=== PATIENT | male | born 1970 | race Caucasian/White ===

== ENCOUNTER 2022-07-04 06:24 | Day surgery (SDC) | payer BC, SELFPAY ==
--- NOTE | 2022-07-03 10:58 | P.CONAN_ITS ---
Documented by User: Jodi Rowley NP 07/03/22 10:58 HPI - Anesthesia Eval Consult details Narrative: 52yo M for Upper Endoscopy and Colonoscopy [facility] Past Medical History Medical History Anxiety Atypical chest pain GERD (gastroesophageal reflux disease) HTN (hypertension) Seasonal allergies Surgical History Surgical History History of esophagogastroduodenoscopy (EGD) Social History Social History Patient Tobacco Use Status: Never used Tobacco Use of substances other than those prescribed or required for medical reasons: No Have you been hit, kicked, punched, or otherwise hurt by someone within the past year? If so, by whom?: No Are you DNR?: No Advance Directives: No Advance Directives Information Provided: Yes Recently lost weight without trying: No Nutrition Risks: No Nutritional Risk Poor oral hygiene: No Meds Allergies Allergy/AdvReac Type Severity Reaction Status Date / Time penicillin G Allergy Unknown Unknown Verified 06/27/22 16:13 sulfacetamide Allergy Unknown Unknown Verified 06/27/22 16:13 Home Medications Medication Instructions Recorded Confirmed Last Taken Type cetirizine 10 mg tablet (Zyrtec) 10 mg PO DAILY 06/27/22 06/27/22 Unknown History citalopram 20 mg tablet (Celexa) 30 mg PO DAILY 06/27/22 06/27/22 Unknown History lisinopril 20 mg tablet 20 mg PO DAILY 06/27/22 06/27/22 Unknown History pantoprazole 40 mg tablet,delayed 40 mg PO DAILY 06/27/22 06/27/22 Unknown History release Exam Exam Date and Time: July 03, 2022 105 Assessment and Plan Assessment Anesthesia Assessment: Chart Reviewed Documented by User: Antonio Lloyd MD 07/04/22 07:22 [facility] Past Medical History Medical History Anxiety Atypical chest pain GERD (gastroesophageal reflux disease) HTN (hypertension) Seasonal allergies Family History Family history of problems with anesthesia: No Surgical History Surgical History History of esophagogastroduodenoscopy (EGD) History of Problems with Anesthesia: No Social History Social History Patient Tobacco Use Status: Never used Tobacco Use of substances other than those prescribed or required for medical reasons: No Have you been hit, kicked, punched, or otherwise hurt by someone within the past year? If so, by whom?: No Are you DNR?: No Advance Directives: No Advance Directives Information Provided: Yes Recently lost weight without trying: No Nutrition Risks: No Nutritional Risk Poor oral hygiene: No Meds Allergies Allergy/AdvReac Type Severity Reaction Status Date / Time penicillin G Allergy Unknown Unknown Verified 06/27/22 16:13 sulfacetamide Allergy Unknown Unknown Verified 06/27/22 16:13 Home Medications Medication Instructions Recorded Confirmed Last Taken Type cetirizine 10 mg tablet (Zyrtec) 10 mg PO DAILY 06/27/22 06/27/22 Unknown History citalopram 20 mg tablet (Celexa) 30 mg PO DAILY 06/27/22 06/27/22 Unknown History lisinopril 20 mg tablet 20 mg PO DAILY 06/27/22 06/27/22 Unknown History pantoprazole 40 mg tablet,delayed 40 mg PO DAILY 06/27/22 06/27/22 Unknown History release Exam Airway Mallampati Class: II TM Dist: >3cm Neck ROM: Full Loose/Missing/Broken Teeth: No (Rrr) Heart: rrr Lungs: clear Assessment and Plan Final Anesthetic Review Family History of Problems with Anesthesia: No History of Problems with Anesthesia: No ASA Class: II Final Preanesthetic Review: No Changes in Pt Med Stat, Meds/Allgs Chart Reviewed, Consent Obtained/Reviewed and Anes Risks/Benef Reviewed Patient Risk: Low Procedure Risk: Low Anesthetic Plan Anesthetic Plan: MAC: Disposition: Standard PACU
[2022-07-04 07:03] VITALS: BP 132/82; PULSE 86; RESP 18; TEMP 36.6; O2SAT 95; BMI 28.4
[2022-07-04 08:35] VITALS: BP 113/68; PULSE 78; RESP 16; TEMP 36.1; O2SAT 95
--- NOTE | 2022-07-04 08:40 | P.BOP_ITS ---
Brief Operative Note Date of Service: 06/27/22 Pre-op diagnosis: Abdominal pain, GERD, Screening Post-op diagnosis: other (Hiatal hernia, Gastric polyps, Colon polyps) Procedure: EGD with bx, Colonoscopy to the cecum and TI with bx/removal of polyp, and hot snare polypectomy at 40 cm Surgeon: Byron Casper Anesthesia: MAC Was an Pharmacy Student used for this Procedure?: No Estimated blood loss (mL): 2.0 Pathology: other (A. Gastric antrum B. Gastric polyps C. Transverse colon polyp D. Polyp at 40cm) Condition: stable Disposition: PACU
[2022-07-04 08:50] VITALS: BP 104/68; PULSE 76; RESP 16; TEMP 36.1; O2SAT 97
--- NOTE | 2022-07-04 21:18 | OP_ITS ---
SURGEON: Byron Casper MD INDICATIONS: The patient presents for evaluation of abdominal discomfort, gastroesophageal reflux, and colorectal cancer screening. Full consent has been obtained from him for both procedures, including risks of bleeding and perforation. PREOPERATIVE DIAGNOSIS: POSTOPERATIVE DIAGNOSIS: PROCEDURE PERFORMED: Esophagogastroduodenoscopy with biopsies, and colonoscopy to the cecum and terminal ileum with biopsy and removal of polyp and hot snare polypectomy. ESTIMATED BLOOD LOSS: COMPLICATIONS: ANESTHESIA: ASSISTANTS: SPECIMENS: PREOPERATIVE DIAGNOSES: Gastroesophageal reflux, abdominal discomfort, colorectal cancer screening. POSTOPERATIVE DIAGNOSES: Small hiatal hernia, gastric polyps, colon polyps, internal hemorrhoids. PREOPERATIVE MEDICATIONS USED: Monitored anesthesia care. DESCRIPTION OF PROCEDURE: The patient was placed in the left lateral decubitus position. The Olympus video gastroscope was passed in the posterior oropharynx and upper esophagus under direct vision. The scope was passed slowly into the distal esophagus. The gastroesophageal junction appeared normal at 38 cm. There was no sign of any esophagitis nor Rausch esophagus. The scope entered the stomach. There was a small hiatal hernia. The scope was advanced to pylorus and duodenum was cannulated to the descending portion. The duodenum including the bulb appeared normal without mass or ulceration. The scope was withdrawn back in the stomach. The gastric antrum and body had some mild areas of erythema, but no erosions or ulceration. There was good peristalsis. Biopsies were obtained. The scope was retroflexed, visualizing the proximal stomach carefully, which appeared normal, other than some hyperplastic-appearing gastric polyps. There was no mass or ulceration. Biopsies were obtained from 2 of the polyps. The scope was withdrawn back to the esophagus. The esophageal mucosa appeared normal. The scope was withdrawn from the patient, he was turned around for colonoscopy. The digital rectal exam revealed no abnormalities. The Olympus video pediatric colonoscope was entered into the rectum and advanced easily to the cecum. Once in the cecum, I did identify normal-appearing cecal pouch with appendiceal orifice and a normal-appearing ileocecal valve. The terminal ileum was cannulated and appeared normal. The scope was withdrawn back in the colon. The entire cecum and ileocecal valve appeared normal. The scope was slowly withdrawn assessing all mucosal surfaces carefully. Preparation was excellent. In the transverse colon, there was an approximately 4 or 5 mm polyp, which was biopsied and completely removed with cold biopsy forceps. At 40 cm was a flat, but slightly raised approximately 8 to 10 mm polyp, which was initially biopsied once, and the remainder was removed with hot snare polypectomy. The specimen was recovered by suction. The polypectomy site appeared clean, without any sign of residual polyp, nor bleeding. I did not visualize any other polyps, colitis, nor angiodysplasia. There were occasional diverticula in the sigmoid colon and the rectum, scope was retroflexed visualizing internal hemorrhoids, but no other pathology. The rectal mucosa appeared normal. The scope was straightened and withdrawn from the patient. He tolerated both procedures well and was returned to recovery area in stable condition. IMPRESSION: 1. Small hiatal hernia. 2. Gastric polyps. 3. Rule out gastritis and/or H pylori. 4. Colon polyps. 5. Internal hemorrhoids. PLAN: The results of the pathology will be checked. If the colon polyps are tubular adenoma, I would recommend a followup colonoscopy in 5 years. If they are only hyperplastic, I would recommend a followup colonoscopy in 10 years. He was advised not to use any aspirin and NSAIDs for 1 week. He will continue omeprazole for his reflux. Even if H pylori is present in the gastric biopsies, I would not necessarily treat that at this time unless he continues to have significant upper abdominal discomfort. If things are stable, he will see me on a p.r.n. basis. MD PRINCE Loja/WAYNE / [id number]
== END 2022-07-04 09:28 | disposition home or self-care (01) ==
PROVIDERS: PCP Internal Medicine; Visit Provider Internal Medicine
PROC: (CPT 45385; principal; 2022-07-04 07:30)
DX: Z12.11 Encounter for screening for malignant neoplasm of colon (principal); D12.3 Benign neoplasm of transverse colon; D12.5 Benign neoplasm of sigmoid colon; K57.30 Diverticulosis of large intestine without perforation or abscess without bleeding; K64.8 Other hemorrhoids; R10.13 Epigastric pain; K21.9 Gastro-esophageal reflux disease without esophagitis; K31.7 Polyp of stomach and duodenum; K44.9 Diaphragmatic hernia without obstruction or gangrene; I10 Essential (primary) hypertension; F41.1 Generalized anxiety disorder; Z79.899 Other long term (current) drug therapy; Z88.0 Allergy status to penicillin
CPT/HCPCS: 45385; 45380; 43239; 88305; 88342